=== PATIENT | female | born 1980 | race Caucasian/White ===

== ENCOUNTER 2018-03-05 21:33 | Emergency (ER) | payer OTHER ==
[~2018-03-05] VITALS: Ht 157.5 cm; Wt 104.3 kg
--- NOTE | 2018-03-06 16:34 | EKG ---
[facility] [address] [facility] [place], [place] [address] Signed Sinus tachycardia Otherwise normal ECG No previous ECGs available Confirmed by SHIRA VILLATORO DO ([id number]) on 03/06/2018 4:34:11 PM Electronically Signed By: SHIRA VILLATORO DO 03/06/18 1634 PATIENT NAME: MAULIK MASCORRO Electrocardiogram DATE OF : 80 PHYSICIAN: SHIRA VILLATORO DO REPORT #: [id number] REPORT IS CONFIDENTIAL AND NOT TO BE RELEASED WITHOUT AUTHORIZATION
== END 2018-03-05 23:15 | disposition home or self-care (01) ==
LOC: ED 21:33
DX: R07.89 Other chest pain (principal); Z88.2 Allergy status to sulfonamides
CPT/HCPCS: 71046; 80053; 84484; 85025; 85379; 85610; 85730; 93005; 93010; 99285

== ENCOUNTER 2018-10-26 20:52 | Emergency (ER) | payer OTHER ==
[~2018-10-26] VITALS: Ht 157.5 cm; Wt 113.4 kg
--- NOTE | 2018-10-27 06:47 | EKG ---
[facility] [address] [place], [place] [address] Signed Normal sinus rhythm with sinus arrhythmia Normal ECG When compared with ECG of 05-MAR-2018 21:37, No significant change was found Confirmed by MIRTHA KIRAN MD ([id number] on 10/27/2018 6:47:38 AM Electronically Signed By: MIRTHA KIRAN MD 10/27/18 0647 PATIENT NAME: LUDWINMAULIK Electrocardiogram DATE OF : 80 PHYSICIAN: MIRTHA KIRAN MD REPORT #: [id number] REPORT IS CONFIDENTIAL AND NOT TO BE RELEASED WITHOUT AUTHORIZATION
== END 2018-10-26 22:45 | disposition home or self-care (01) ==
LOC: ED 20:52
DX: R07.9 Chest pain, unspecified (principal); E03.9 Hypothyroidism, unspecified; Z88.2 Allergy status to sulfonamides
CPT/HCPCS: 71045; 80053; 84484; 85025; 93005; 93010; 99285-25